=== PATIENT | male | born 1985 | race Caucasian/White ===

== ENCOUNTER 2017-04-02 23:58 | Emergency (ER) | payer BC ==
[~2017-04-02] VITALS: Ht 177.8 cm; Wt 111.4 kg
[2017-04-03 00:05] VITALS: TEMP 36.8; Ht 177.8 cm; Wt 111.4 kg
[2017-04-03] MEDS ORDERED: LIDOCAINE HCL 2% VISC SOLN 20 ML UDC PO STA (00:21)
[2017-04-03] MEDS ORDERED: PANTOprazole SOD 40 MG TAB PO STA (00:21)
[2017-04-03] MEDS ORDERED: ALUMINUM/MAGNESIUM SUSP 30 ML UDC PO STA (00:21)
--- NOTE | 2017-04-03 00:24 | EMERGENCY ROOM VISIT NOTE ---
History Report prepared by Jose Aibe: Andreina Smith Under the Supervision of: Dr. Kimberly Serrano D.O. First contact with patient: 00:06 Chief Complaint: ABDOMINAL PAIN Stated Complaint: STOMACH PAIN Nursing Triage Summary: patient states around 1300 yesterday he developed a " knot " in his abdomen and it feels like " fire". Patient states he ate nothing all day and drank coffee all day. state his symptoms are usually relieved by GI cocktail and protonix. History of Present Illness The patient is a 31 year old male who presents to the Emergency Room with complaints of persistent abdominal pain that started around 1pm yesterday afternoon. The patient rates his pain a 5/10 in severity. He states this normally happens once per year. The patient notes he drank coffee yesterday morning and did not eat anything with it. He states he normally eats with his coffee but he did work so he did not eat anything until 2pm. The patient denies any medical problems or medication. He notes he took Zantac when the pain started but he vomited shortly after. He states he had a beer in the afternoon around 4pm. Source of History: patient Onset: 1pm yesterday Position: abdomen Symptom Intensity: 5/10 Timing: other (persistent) Associated Symptoms: + vomiting Note: The patient denies any other associated symptoms. Review of Systems See HPI for pertinent positives & negatives. A total of 10 systems reviewed and were otherwise negative. Past Medical & Surgical No pertinent past medical or surgical history. Family History No pertinent family history Social History Smoking Status: Never Smoker Alcohol Use: occasionally Drug Use: none Marital Status: Housing Status: lives with family Occupation Status: employed Current/Historical Medications No Active Prescriptions or Reported Meds Allergies Coded Allergies: No Known Allergies (Unverified , 04/03/17) Physical Exam Vital Signs Date Time Temp Pulse Resp B/P (MAP) Pulse Ox O2 Delivery O2 Flow Rate FiO2 04/03/17 02:23 57 20 152/88 99 04/03/17 01:32 57 20 159/98 98 Room Air 04/03/17 00:05 36.8 55 16 162/111 99 Room Air Physical Exam HEENT: Head - normocephalic and atraumatic Pupils are equal, round, and reactive to light. Extraocular eye muscles are intact, and sclera are anicteric. Nose - moist nasal mucosa without discharge. Mouth - moist buccal mucosa. Oropharynx is nonerythematous and there is no tonsillar exudate or edema noted. Neck: Supple; no JVD, nuchal rigidity, cervical lymphadenopathy. Heart: Regular rate and rhythm. There is a normal S1 and S2 with no murmurs, clicks, or gallops appreciated. Lungs: Clear to auscultation bilaterally with no wheezes, rales, or rhonchi. Abdomen: Epigastric pain with palpation. There are no palpable pulsatile masses or hepatosplenomegaly. There is no guarding, rigidity, or rebound noted. Extremities: No evidence of cyanosis, clubbing, or edema. There are easily palpable peripheral pulses. Skin: warm and dry with good turgor and no rashes. Medical Decision & Procedures Laboratory Results 04/03/17 01:30 Red Blood Count 4.56, Mean Corpuscular Volume 86.8, Mean Corpuscular Hemoglobin 30.3, Mean Corpuscular Hemoglobin Concent 34.8, Mean Platelet Volume 9.1, Neutrophils (%) (Auto) 71.8, Lymphocytes (%) (Auto) 17.1, Monocytes (%) (Auto) 8.3, Eosinophils (%) (Auto) 2.1, Basophils (%) (Auto) 0.3, Neutrophils # (Auto) 8.11, Lymphocytes # (Auto) 1.93, Monocytes # (Auto) 0.94, Eosinophils # (Auto) 0.24, Basophils # (Auto) 0.03 04/03/17 01:30 Test 04/03/17 01:30 White Blood Count 11.29 K/uL (4.8-10.8) Red Blood Count 4.56 M/uL (4.7-6.1) Hemoglobin 13.8 g/dL (14.0-18.0) Hematocrit 39.6 % (42-52) Mean Corpuscular Volume 86.8 fL (80-100) Mean Corpuscular Hemoglobin 30.3 pg (25-34) Mean Corpuscular Hemoglobin Concent 34.8 g/dl (32-36) Platelet Count 220 K/uL (130-400) Mean Platelet Volume 9.1 fL (7.4-10.4) Neutrophils (%) (Auto) 71.8 % Lymphocytes (%) (Auto) 17.1 % Monocytes (%) (Auto) 8.3 % Eosinophils (%) (Auto) 2.1 % Basophils (%) (Auto) 0.3 % Neutrophils # (Auto) 8.11 K/uL (1.4-6.5) Lymphocytes # (Auto) 1.93 K/uL (1.2-3.4) Monocytes # (Auto) 0.94 K/uL (0.11-0.59) Eosinophils # (Auto) 0.24 K/uL (0-0.5) Basophils # (Auto) 0.03 K/uL (0-0.2) RDW Standard Deviation 40.5 fL (36.4-46.3) RDW Coefficient of Variation 12.7 % (11.5-14.5) Immature Granulocyte % (Auto) 0.4 % Immature Granulocyte # (Auto) 0.04 K/uL (0.00-0.02) Anion Gap 8.0 mmol/L (3-11) Est Creatinine Clear Calc Drug Dose 112.2 ml/min Estimated GFR () 94.4 Estimated GFR (Non- 81.4 BUN/Creatinine Ratio 11.8 (10-20) Calcium Level 8.7 mg/dl (8.5-10.1) Total Bilirubin 0.5 mg/dl (0.2-1) Direct Bilirubin 0.1 mg/dl (0-0.2) Aspartate Amino Transf (AST/SGOT) 16 U/L (15-37) Alanine Aminotransferase (ALT/SGPT) 23 U/L (12-78) Alkaline Phosphatase 44 U/L (45-117) Total Protein 7.8 gm/dl (6.4-8.2) Albumin 4.1 gm/dl (3.4-5.0) Lipase 201 U/L (73-393) Laboratory results per my review. Medications Administered Medications (Trade) Dose Ordered Sig/Alexandru Route Start Time Stop Time Status Last Admin Dose Admin Pantoprazole Sodium (Protonix Tab) 40 mg NOW STAT PO 04/03/17 00:21 04/03/17 00:22 DC 04/03/17 00:32 40 MG Lidocaine HCl (Viscous Lidocaine 2% Soln) 10 ml NOW STAT PO 04/03/17 00:21 04/03/17 00:22 DC 04/03/17 00:33 10 ML Al Hydroxide/Mg Hydroxide (Maalox Susp) 30 ml NOW STAT PO 04/03/17 00:21 04/03/17 00:22 DC 04/03/17 00:33 30 ML Ondansetron HCl (Zofran Inj) 4 mg NOW STAT IV 04/03/17 01:22 04/03/17 01:25 DC 04/03/17 01:31 4 MG Famotidine (Pepcid 20mg Iv Push) 20 mg ONE STAT IV 04/03/17 01:22 04/03/17 01:25 DC 04/03/17 01:31 20 MG Procedure Medications administered: 0021: Maalox Susp 30 ml PO, Lidocaine HCI 10 ml PO, Protonix Tab 40 mg PO. 0122: Famotidine 20 mg IV, Zofran Inj 4 mg IV. ED Course 0006: The patient was evaluated in room B10. A complete history and physical examination were performed. Nursing notes and previous electronic medical records were reviewed. IV lock was established and labs were drawn as above. 0021: Maalox Susp 30 ml PO, Lidocaine HCI 10 ml PO, Protonix Tab 40 mg PO. 0120: Per the nursing staff, the patient states some burning went away with the GI cocktail but nausea persists. I will administer IV medications. 0122: Famotidine 20 mg IV, Zofran Inj 4 mg IV. 0207: Upon reevaluation, the patient is feeling much better. His blood pressure is elevated and he will follow up with his PCP. I discussed findings and results with him. He verbalized agreement of the treatment plan. He will be discharged home. Medical Decision The patient is a 31 year old male who presents to the ED with abdominal pain. Differential diagnosis includes GERD, pancreatitis, aortic dissection, esophagitis, viral illness, gastritis. Lab interpretation: No leukocytosis, stable H&H, normal lipase, normal LFTs, normal glucose and renal function this is a 31-year-old male patient presents to the emergency department with epigastric abdominal pain the patient describes having this type of episode approximately once a year. He attributes his symptoms this time to consuming coffee yesterday and not eating anything. The patient had some relief of his symptoms after receiving a GI cocktail. He then went on to receive IV Zantac and IV Zofran with complete resolution of symptoms. I spent time talking to the patient about GERD and dietary management. Because his episodes only happen approximately once year, I did not think that he would benefit from an H2 hayley or a proton pump inhibitor. However, I've asked him to follow up with his PCP if the symptoms persist. Medication Reconcilliation Current Medication List: was personally reviewed by me Blood Pressure Screening Patient's blood pressure: Elevated blood pressure Blood pressure disposition: Referred to PCP Impression Primary Impression: GERD (gastroesophageal reflux disease) Scribe Attestation The scribe's documentation has been prepared under my direction and personally reviewed by me in its entirety. I confirm that the note above accurately reflects all work, treatment, procedures, and medical decision making performed by me. Departure Information Dispostion Home / Self-Care Prescriptions No Active Prescriptions or Reported Meds Referrals Rishi Joe, D.O. (PCP) Patient Instructions [facility] Additional Instructions Rest. Take a bland diet over next couple of days Avoid caffeine and alcohol. Take 4-5 small meals a day. Follow up with PCP on Thursday to have BP rechecked. Return to the ER if symptoms worsen. You can start taking zantac as needed for further episodes of epigastric/chest pain Problem Qualifiers Primary Impression: GERD (gastroesophageal reflux disease) Esophagitis presence: with esophagitis Qualified Codes: K21.0 - Gastro- esophageal reflux disease with esophagitis
[2017-04-03] MEDS ORDERED: FAMOTIDINE 20MG/5ML IV PUSH IV STA (01:22)
[2017-04-03] MEDS ORDERED: ONDANSETRON INJ 2 MG/ML 2 ML VIAL IV STA (01:22)
[2017-04-03 01:40] LABS: BASO % 0.3 %; BASO ABS # 0.03 K/uL (0-0.2); COMPLETE YES; EOS % 2.1 %; HEMATOCRIT 39.6 % (42-52); IG% 0.4 %; LYMPH % 17.1 %; LYMPH ABS # 1.93 K/uL (1.2-3.4); MEAN CELL VOLUME 86.8 fL (80-100); MEAN CORPUSCULAR HEMOGLOBIN 30.3 pg (25-34); MEAN CORPUSCULAR HGB CONC 34.8 g/dl (32-36); MEAN PLATELET VOLUME 9.1 fL (7.4-10.4); MONO % 8.3 %; NEUT % 71.8 %; PLATELET COUNT 220 K/uL (130-400); RED BLOOD COUNT 4.56 M/uL (4.7-6.1); WHITE BLOOD COUNT 11.29 K/uL (4.8-10.8)
[2017-04-03 01:58] LABS: BUN/CREATININE RATIO 11.8 (10-20); CALCIUM 8.7 mg/dl (8.5-10.1); CREATININE 1.17 mg/dl (0.60-1.40); POTASSIUM 3.9 mmol/L (3.5-5.1)
[2017-04-03 02:23] VITALS: BP 152/88; PULSE 57; O2SAT 99
== END 2017-04-03 02:26 | disposition home or self-care (01) ==
LOC: C.EDB 23:59
DX: K21.0 Gastro-esophageal reflux disease with esophagitis (principal)